=== PATIENT | female | born 1960 | race Caucasian/White ===

== ENCOUNTER → 2016-07-26 | Outpatient (CLI) | payer OTHER ==
[~2016-07-26] MED LIST: CHOL100047 PO; ESTR1PAT83 TD; FOLI0.4T2 PO; HYDR-4074 PO; LANS15CA19 PO; OXYC1TAB8 PO; POLY17PO6 PO; PROP80CA2 PO; VENL37.571 PO; ZOLE5INF7 IV
== END ==
LOC: WC.BC 14:02
PROVIDERS: ATTEND Family Medicine
DX: N60.12 Diffuse cystic mastopathy of left breast (principal); R92.8 Other abnormal and inconclusive findings on diagnostic imaging of breast
CPT/HCPCS: 76642; 77062; G0204